=== PATIENT | female | born 1970 | race Caucasian/White ===

== ENCOUNTER → 2018-08-19 | Outpatient (REF) | payer BC ==
[~2018-08-19] MED LIST: ALB18R INH; ANTI INFLAM; AUG875 PO; BACDS PO; BUS5 PO; CIPR-344 PO; CODE118S5 PO; DESV50TA9 PO; DILT120C PO; HYDR25CA83 PO; LAMO25TA60 PO; LIT300CAP PO; LOR5/325 PO; MAGN296S6 PO; METO25TA23 PO; METO25TA93 PO; METR-1 PO; MIRT-1 PO; NO ROUTINE MEDS; OND4 PO; ONDA4TAB PO; OXYC-489 PO; PER PO; PRED20TA6 PO; RANI-366 PO; TRA50 PO; VENL150C61 PO; ZOL5 PO; [UNRECOGNIZED DRUG - CODE] PO; [UNRECOGNIZED DRUG - OTHER]
[2018-08-19 19:18] LABS: PLATELET COUNT, AUTOMATED 194 K/uL (150-450)
== END ==
PROVIDERS: ATTEND Nurse Practitioner Family
DX: R11.10 Vomiting, unspecified (principal)
CPT/HCPCS: 82040; 82150; 82247; 82310; 82374; 82435; 82565; 82947; 83690; 84075; 84132; 84155; 84295; 84450; 84460; 84520; 85025

== ENCOUNTER 2018-11-04 09:38 | Emergency (ER) | payer BC ==
[~2018-11-04 09:38] MED LIST changes: -LAMO25TA60 PO; +LAMO25TA68 PO
--- NOTE | 2018-11-04 09:55 | ER Report ---
History and Physical Time Seen By MD: 09:51 HPI/ROS CHIEF COMPLAINT: cough, abdominal pain HISTORY OF PRESENT ILLNESS: Patient is a 48-year-old female who presents to the emergency department with upper respiratory and flulike symptoms that started earlier in the week over the last 24 hours she is developed bilateral severe lower abdominal pain along with nausea and some diarrhea. She states the diarrhea is nonbloody. Patient states she has a prior history of diverticulitis and states this feels somewhat similar. Patient states that she's had some subjective fevers and chills at home. Denies any chest pain or shortness of breath but does admit to a nonproductive dry cough. She states that multiple coworkers at the [employer] are ill with similar symptoms. REVIEW OF SYSTEMS: Constitutional: Subjective fevers and chills Eyes: No discharge. ENT: No sore throat. Cardiovascular: No chest pain, no palpitations. Respiratory: Nonproductive cough Gastrointestinal: Bilateral lower quadrant abdominal pain with nausea also with nonbloody diarrhea Genitourinary: No hematuria. Musculoskeletal: No back pain. Skin: No rashes. Neurological: No headache. Allergies: Coded Allergies: lamotrigine (Verified Allergy, Mild, Rash, nausea, dizziness, 11/04/18) Home Meds Active Scripts Metronidazole (FLAGYL) 500 Mg Tablet, 500 MG PO BID, #14 TAB 0 Refills Prov:ORA ESTEBAN MD 11/04/18 Ciprofloxacin Hcl 500 Mg Tab (CIPRO 500 MG TAB) 500 Mg Tablet, 500 MG PO BID, #14 TAB 0 Refills Prov:ORA ESTEBAN MD 11/04/18 Ondansetron Hcl (ZOFRAN) 4 Mg Tablet, 4 MG PO Q6H for Nausea, #12 TAB 0 Refills Prov:ORA ESTEBAN MD 11/04/18 Hydrocodone Bit/Acetaminophen (HYDROCODON-ACETAMINOPHEN 5-325) 1 Each Tablet, 1 EACH PO Q4H for PAIN, #12 TAB 0 Refills Prov:ORA ESTEBAN MD 11/04/18 Discontinued Reported Medications [Cough Syrum Codeine] No Conflict Check 09/15/16 Albuterol Sulfate (VENTOLIN HFA) 18 Gm Inh, 1-2 PUFF INH 3-4XD, INH 09/15/16 Discontinued Scripts Codeine/Promethazine Hcl (PROMETHAZINE-CODEINE SYRUP) 5 Ml Syrup, 5 ML PO Q6H PRN for COUGH, #120 ML 0 Refills Prov:ZULEYMA BATISTA MD 09/15/16 Prednisone (PREDNISONE) 20 Mg Tablet, 60 MG PO QDAY, #12 TAB 0 Refills Prov:ZULEYMA BATISTA MD 09/15/16 Past Medical/Surgical History Past medical history for SVT Hx Smoking: No Smoking Status: Never Smoker Exposure to Second Hand Smoke?: No Hx Substance Use Disorder: No Hx Alcohol Use: Yes Constitutional Vital Sign - Last 24 Hours 11/04/18 11/04/18 11/04/18 11/04/18 09:38 09:49 09:53 10:00 Temp 98.8 Pulse 80 78 Resp 18 B/P (MAP) 120/80 (93) 120/80 122/84 (97) Pulse Ox 98 O2 Delivery Room Air 11/04/18 11/04/18 11/04/18 11/04/18 10:08 10:30 10:38 10:56 Pulse 79 80 B/P (MAP) 124/71 (88) Pulse Ox 96 97 O2 Flow Rate 2.0 11/04/18 11/04/18 11/04/18 11/04/18 11:00 11:05 11:30 11:35 Pulse 67 70 B/P (MAP) 123/69 (87) 119/73 (88) Pulse Ox 100 100 11/04/18 11/04/18 11/04/18 11:40 12:00 12:10 Pulse 68 72 B/P (MAP) 118/60 (79) Pulse Ox 99 99 Physical Exam General Appearance: The patient is alert, has no immediate need for airway protection and no signs of toxicity. Eyes: Pupils equal and round; bilateral conjunctival injection without discharge ENT, Mouth: Mucous membranes are moist. No palatal petechia no exudate Respiratory: There are no retractions, lungs are clear to auscultation. Cardiovascular: Regular rate and rhythm. Gastrointestinal: abdomen is tender throughout the bilateral lower quadrants. Worse with cough equivocal peritoneal signs Neurological: Awake and alert Skin: Warm and dry, no rashes. Musculoskeletal: Neck is supple non tender. Extremities are nontender, nonswollen and have full range of motion. Medical Decision Making Data Points Result Diagram: 11/04/1895711/04/18957 Laboratory Hematology Test 11/04/18 09:48 11/04/18 09:58 11/04/18 10:38 Urine Color Yellow Urine Clarity Clear Urine pH 6.0 pH (4.8-9.5) Urine Specific [place] 1.029 Urine Protein Negative mg/dL (NEGATIVE) Urine Glucose (UA) Negative mg/dL (NEGATIVE) Urine Ketones Trace mg/dL (NEGATIVE) Urine Blood Negative (NEGATIVE) Urine Nitrite Negative (NEGATIVE) Urine Bilirubin Negative (NEGATIVE) Urine Urobilinogen Negative mg/dL (0.2-1.9) Urine Leukocyte Esterase Negative (NEGATIVE) Urine RBC 1 /HPF (0-2/HPF) Urine WBC 1 /HPF (0-5/HPF) Urine Squamous Epithelial Cells Moderate /LPF (</=FEW) Urine Bacteria Negative /HPF (NONE-FEW) Urine Mucus Few /HPF (NONE-FEW) Red Blood Count 4.89 M/uL (4.17-5.56) Mean Corpuscular Volume 92.4 fL (80.0-96.0) Mean Corpuscular Hemoglobin 32.1 pg (26.0-33.0) Mean Corpuscular Hemoglobin Concent 34.7 g/dL (32.0-36.0) Red Cell Distribution Width 12.0 % (11.5-14.5) Mean Platelet Volume 8.3 fL (7.2-11.1) Neutrophils (%) (Auto) 78.4 % (39.4-72.5) Lymphocytes (%) (Auto) 14.6 % (17.6-49.6) Monocytes (%) (Auto) 5.5 % (4.1-12.4) Eosinophils (%) (Auto) 0.9 % (0.4-6.7) Basophils (%) (Auto) 0.6 % (0.3-1.4) Nucleated RBC Relative Count (auto) 0.1 /100WBC Neutrophils # (Auto) 7.1 K/uL (2.0-7.4) Lymphocytes # (Auto) 1.3 K/uL (1.3-3.6) Monocytes # (Auto) 0.5 K/uL (0.3-1.0) Eosinophils # (Auto) 0.1 K/uL (0.0-0.5) Basophils # (Auto) 0.1 K/uL (0.0-0.1) Nucleated RBC Absolute Count (auto) 0.01 K/uL Sodium Level 136 mmol/L (137-145) Potassium Level 3.6 mmol/L (3.5-5.0) Chloride Level 104 mmol/L (98-107) Carbon Dioxide Level 24 mmol/L (22-31) Blood Urea Nitrogen 19 mg/dl (7-18) Creatinine 0.60 mg/dl (0.52-1.04) Glomerular Filtration Rate Calc > 60.0 Random Glucose 93 mg/dl (75-110) Calcium Level 9.1 mg/dl (8.4-10.2) Total Bilirubin 1.3 mg/dl (0.2-1.3) Aspartate Amino Transf (AST/SGOT) 34 U/L (0-35) Alanine Aminotransferase (ALT/SGPT) 37 U/L (0-56) Alkaline Phosphatase 108 U/L (0-126) Total Protein 6.8 g/dl (6.3-8.2) Albumin 4.3 g/dl (3.5-5.0) Lipase 61 U/L (23-300) Human Chorionic Gonadotropin, Qual Negative (NEGATIVE) Helicobacter pylori IgG Antibody Negative (NEGATIVE) Influenza Virus Type A (PCR) Negative (NEGATIVE) Influenza Virus Type B (PCR) Negative (NEGATIVE) Chemistry Test 11/04/18 09:48 11/04/18 09:58 11/04/18 10:38 Urine Color Yellow Urine Clarity Clear Urine pH 6.0 pH (4.8-9.5) Urine Specific [place] 1.029 Urine Protein Negative mg/dL (NEGATIVE) Urine Glucose (UA) Negative mg/dL (NEGATIVE) Urine Ketones Trace mg/dL (NEGATIVE) Urine Blood Negative (NEGATIVE) Urine Nitrite Negative (NEGATIVE) Urine Bilirubin Negative (NEGATIVE) Urine Urobilinogen Negative mg/dL (0.2-1.9) Urine Leukocyte Esterase Negative (NEGATIVE) Urine RBC 1 /HPF (0-2/HPF) Urine WBC 1 /HPF (0-5/HPF) Urine Squamous Epithelial Cells Moderate /LPF (</=FEW) Urine Bacteria Negative /HPF (NONE-FEW) Urine Mucus Few /HPF (NONE-FEW) White Blood Count 9.0 k/uL (4.5-11.0) Red Blood Count 4.89 M/uL (4.17-5.56) Hemoglobin 15.7 g/dL (12.0-16.0) Hematocrit 45.1 % (34.0-47.0) Mean Corpuscular Volume 92.4 fL (80.0-96.0) Mean Corpuscular Hemoglobin 32.1 pg (26.0-33.0) Mean Corpuscular Hemoglobin Concent 34.7 g/dL (32.0-36.0) Red Cell Distribution Width 12.0 % (11.5-14.5) Platelet Count 233 K/uL (150-450) Mean Platelet Volume 8.3 fL (7.2-11.1) Neutrophils (%) (Auto) 78.4 % (39.4-72.5) Lymphocytes (%) (Auto) 14.6 % (17.6-49.6) Monocytes (%) (Auto) 5.5 % (4.1-12.4) Eosinophils (%) (Auto) 0.9 % (0.4-6.7) Basophils (%) (Auto) 0.6 % (0.3-1.4) Nucleated RBC Relative Count (auto) 0.1 /100WBC Neutrophils # (Auto) 7.1 K/uL (2.0-7.4) Lymphocytes # (Auto) 1.3 K/uL (1.3-3.6) Monocytes # (Auto) 0.5 K/uL (0.3-1.0) Eosinophils # (Auto) 0.1 K/uL (0.0-0.5) Basophils # (Auto) 0.1 K/uL (0.0-0.1) Nucleated RBC Absolute Count (auto) 0.01 K/uL Glomerular Filtration Rate Calc > 60.0 Calcium Level 9.1 mg/dl (8.4-10.2) Total Bilirubin 1.3 mg/dl (0.2-1.3) Aspartate Amino Transf (AST/SGOT) 34 U/L (0-35) Alanine Aminotransferase (ALT/SGPT) 37 U/L (0-56) Alkaline Phosphatase 108 U/L (0-126) Total Protein 6.8 g/dl (6.3-8.2) Albumin 4.3 g/dl (3.5-5.0) Lipase 61 U/L (23-300) Human Chorionic Gonadotropin, Qual Negative (NEGATIVE) Helicobacter pylori IgG Antibody Negative (NEGATIVE) Influenza Virus Type A (PCR) Negative (NEGATIVE) Influenza Virus Type B (PCR) Negative (NEGATIVE) Urinalysis Test 11/04/18 09:48 Urine Color Yellow Urine Clarity Clear Urine pH 6.0 pH (4.8-9.5) Urine Specific [place] 1.029 Urine Protein Negative mg/dL (NEGATIVE) Urine Glucose (UA) Negative mg/dL (NEGATIVE) Urine Ketones Trace mg/dL (NEGATIVE) Urine Blood Negative (NEGATIVE) Urine Nitrite Negative (NEGATIVE) Urine Bilirubin Negative (NEGATIVE) Urine Urobilinogen Negative mg/dL (0.2-1.9) Urine Leukocyte Esterase Negative (NEGATIVE) Urine RBC 1 /HPF (0-2/HPF) Urine WBC 1 /HPF (0-5/HPF) Urine Squamous Epithelial Cells Moderate /LPF (</=FEW) Urine Bacteria Negative /HPF (NONE-FEW) Urine Mucus Few /HPF (NONE-FEW) EKG/Imaging Imaging FACILITY: PATIENT NAME: Cassi Fang : 1970 MR: [id number] V: [id number] EXAM DATE: ORDERING PHYSICIAN: ORA ESTEBAN TECHNOLOGIST: Location: [facility] Patient: Cassi Fang : 1970 Visit/Account:[id number] Date of Sevice: 11/04/2018 CT ABDOMEN PELVIS W/ CON HISTORY: b/l lower quad ab pain TECHNIQUE: Following administration of IV contrast contiguous axial images acquired through the abdomen/pelvis. Coronal and sagittal reformatting also performed.Dose Lowering Technique One of the following dose optimization techniques was utilized in the performance of this exam: Automated exposure control; adjustment of the mA and/or kV according to the patient's size; or use of an iterative reconstruction technique. Specific details can be referenced in the facility's radiology CT exam operational policy. CONTRAST: mL Isovue-370 COMPARISON: CT abdomen and pelvis September 02, 2014 FINDINGS: Visualized lung bases: Negative. Hepatobiliary: There is a 4 mm cyst in the lateral segment left lobe of the liver that remains unchanged. There is a 1.2 cm mass in segment seven of the liver with peripheral nodular type enhancement on the portal venous phase of contrast imaging. This further enhances on the delayed images similar to the hepatic veins and likely represents a small incidental hemangioma. This is unchanged in size when compared the prior study . The common bile duct appears dilated up to 1.4 cm although appears similar to the prior study Spleen: Negative. Adrenals: Negative. Pancreas: The pancreatic duct is mildly prominent at the pancreatic head measuring four mm in diameter although appears similar to the prior study Kidneys ureters or bladder: There are subcentimeter renal hypodensities that are too small to characterize by CT Genitalia: Negative. GI: There is extensive diverticulosis in the sigmoid colon. There is also diffuse wall thickening in this location with a small amount of adjacent free pelvic fluid. Findings are concerning for acute diverticulitis. A peridiverticular abscess or perforation is not identified. There is a small hiatal hernia. The appendix is visualized and does not appear inflamed Vessels/spaces/nodes: Small amount of free pelvic fluid Bones/soft tissues: Sclerotic density in the left iliac bone appears stable Additional findings: None pertinent. IMPRESSION: There is diffuse wall thickening in the sigmoid colon in location of numerous diverticula. This finding is likely related to acute diverticulitis. There is a small amount of adjacent free pelvic fluid although no evidence of a peridiverticular abscess or perforation Common bile duct appears dilated at 1.4 cm although appears some are to the prior study. Pancreatic duct also mildly dilated which also appears similar to the prior study. Depending upon clinical presentation and MRCP may be helpful for further evaluation 1.2 cm hemangioma right lobe of the liver appears unchanged Small hiatal hernia Report Dictated By: Esther Bundy MD at 11/04/2018 11:47 AM Report E-Signed By: Esther Bundy MD at 11/04/2018 12:07 PM WSN:[email or web address] ED Course/Re-evaluation ED Course 11/04/2018 10:34:00 am patient with flulike symptoms but also with GI symptoms including diarrhea and pain. We'll perform influenza screen I will also perform CT scan of the abdomen and pelvis. 11/04/2018 11:01:50 am patient with improvement of pain with Toradol. Awaiting results of CT scan 11/04/2018 12:14:[address] are consistent with sigmoid diverticulitis there is some dilation of the biliary and pancreatic ducts. Patient is not having any epigastric abdominal pain do not feel MRCP is needed at this time as we have a definitive diagnosis that is consistent with the patient's history physical exam findings. Decision to Disposition Date: Nov 04, 2018 Decision to Disposition Time: 12:14 Depart Departure Latest Vital Signs Vital Signs Date Time Temp Pulse Resp B/P (MAP) Pulse Ox O2 Delivery O2 Flow Rate FiO2 11/04/18 12:10 72 99 11/04/18 12:00 118/60 (79) 11/04/18 10:56 2.0 11/04/18 09:53 98.8 18 Room Air Impression: Primary Impression: Sigmoid diverticulitis Condition: Improved Disposition: HOME OR SELF-CARE Referrals: AXEL NUNN DO (PCP) 2 Days if your symptoms persist New Scripts Metronidazole (FLAGYL) 500 Mg Tablet 500 MG PO BID, #14 TAB 0 Refills Prov: ORA ESTEBAN MD 11/04/18 Ciprofloxacin Hcl 500 Mg Tab (CIPRO 500 MG TAB) 500 Mg Tablet 500 MG PO BID, #14 TAB 0 Refills Prov: ORA ESTEBAN MD 11/04/18 Ondansetron Hcl (ZOFRAN) 4 Mg Tablet 4 MG PO Q6H for Nausea, #12 TAB 0 Refills Prov: ORA ESTEBAN MD 11/04/18 Hydrocodone Bit/Acetaminophen (HYDROCODON-ACETAMINOPHEN 5-325) 1 Each Tablet 1 EACH PO Q4H for PAIN, #12 TAB 0 Refills Prov: ORA ESTEBAN MD 11/04/18 Departure Forms: ER Transition Record, Medications Reconciliation, Off Work/School Form, School or Work Release?: Work Number of days to be released: 4 Patient Portal Information Patient Instructions: Diverticulitis (DC) ORA ESTEBAN MD Nov 04, 2018 09:54
[2018-11-04] MEDS ORDERED: NS(*) 0.9% 1000 ML BAG 1,000 ML IV ONE (10:12)
[2018-11-04] MEDS ORDERED: KETOROLAC 30 MG/ML VIAL IVP ONE (10:15)
[2018-11-04] MEDS ORDERED: ONDANSETRON 4 MG/2 ML VIAL IVP ONE (10:15)
[2018-11-04 10:32] LABS: PLATELET COUNT, AUTOMATED 233 K/uL (150-450)
[2018-11-04] MEDS ORDERED: AZITHROMYCIN(*) 500 MG 500 MG in NS(*) 0.9% 250 ML BAG 250 ML IVPB ONE (10:55)
[2018-11-04] MEDS ORDERED: cefTRIAXone 1 GM VIAL IVP ONE (10:55)
[2018-11-04] MEDS ORDERED: IOPAMIDOL 76% 150 ML INFUS BTL 150 ML ONE (10:59)
[2018-11-04 12:00] VITALS: BP 118/60
--- NOTE | 2018-11-04 12:12 | RADIOLOGY IMAGING REPORT ---
FACILITY: [facility] [place] PATIENT NAME: Cassi Fang : 1970 MR: [id number] V: [id number] EXAM DATE: ORDERING PHYSICIAN: ORA ESTEBAN TECHNOLOGIST: [place] [facility] [place] Patient: Cassi Fang : 1970 Visit/Account:[id number] Date of Sevice: 11/04/2018 CT ABDOMEN PELVIS W/ CON HISTORY: b/l lower quad ab pain TECHNIQUE: Following administration of IV contrast contiguous axial images acquired through the abdom en/pelvis. Coronal and sagittal reformatting also performed.Dose Lowering Technique One of the following dose optimization techniques was utilized in the performance of this exam: Autom ated exposure control; adjustment of the mA and/or kV according to the patient's size; or use of an i terative reconstruction technique. Specific details can be referenced in the facility's radiology C T exam operational policy. CONTRAST: mL Isovue-370 COMPARISON: CT abdomen and pelvis September 02, 2014 FINDINGS: Visualized lung bases: Negative. Hepatobiliary: There is a 4 mm cyst in the lateral segment left lobe of the liver that remains uncha nged. There is a 1.2 cm mass in segment seven of the liver with peripheral nodular type enhancement on the portal venous phase of contrast imaging. This further enhances on the delayed images similar to the hepatic veins and likely represents a small incidental hemangioma. This is unchanged in size when co mpared the prior study . The common bile duct appears dilated up to 1.4 cm although appears similar to the prior study Spleen: Negative. Adrenals: Negative. Pancreas: The pancreatic duct is mildly prominent at the pancreatic head measuring four mm in diamet er although appears similar to the prior study Kidneys ureters or bladder: There are subcentimeter renal hypodensities that are too small to charact erize by CT Genitalia: Negative. GI: There is extensive diverticulosis in the sigmoid colon. There is also diffuse wall thickening i n this location with a small amount of adjacent free pelvic fluid. Findings are concerning for acute diverticulitis. A peridiverticular abscess or perforation is not identified. There is a small hiat al hernia. The appendix is visualized and does not appear inflamed Vessels/spaces/nodes: Small amount of free pelvic fluid Bones/soft tissues: Sclerotic density in the left iliac bone appears stable Additional findings: None pertinent. IMPRESSION: There is diffuse wall thickening in the sigmoid colon in location of numerous diverticula. This find ing is likely related to acute diverticulitis. There is a small amount of adjacent free pelvic fluid although no evidence of a peridiverticular abscess or perforation Common bile duct appears dilated at 1.4 cm although appears some are to the prior study. Pancreatic duct also mildly dilated which also appears similar to the prior study. Depending upon clinical pres entation and MRCP may be helpful for further evaluation 1.2 cm hemangioma right lobe of the liver appears unchanged Small hiatal hernia Report Dictated By: Esther Bundy MD at 11/04/2018 11:47 AM Report E-Signed By: Esther Bundy MD at 11/04/2018 12:07 PM KARINN:[email or web address]
[2018-11-04] MEDS ORDERED: CIPR-344 PO (12:18)
[2018-11-04] MEDS ORDERED: ONDA4TAB97 PO (12:18)
[2018-11-04] MEDS ORDERED: LOR5/325 PO (12:18)
[2018-11-04] MEDS ORDERED: METR-1 PO (12:18)
== END 2018-11-04 12:32 | disposition home or self-care (01) ==
LOC: ER 09:51
DX: K57.32 Diverticulitis of large intestine without perforation or abscess without bleeding (principal)
CPT/HCPCS: 74177; 81001; 83690; 84703; 85025; 86677; 87502; 96361; 96374; 96375; 99284; J1885; J2405; J7030; Q9967; 82040; 82247; 82310; 82374; 82435; 82565; 82947; 84075; 84132; 84155; 84295; 84450; 84460; 84520

== ENCOUNTER 2018-11-13 13:50 | Inpatient (IN) | payer BC ==
[~2018-11-13] VITALS: Ht 162.6 cm; Wt 65.8 kg
[~2018-11-13 13:50] MED LIST changes: +ONDA4TAB97 PO
--- NOTE | 2018-11-13 13:59 | ER Report ---
History and Physical Time Seen By MD: 13:56 Hx. of Stated Complaint: WORSENING ABDO PAIN DESPITE COMPLETION OF ABT TX FOR DIVERTIC HPI/ROS CHIEF COMPLAINT: Abdominal pain HISTORY OF PRESENT ILLNESS: This is a 48-year-old female presents emergency department for recurrent abdominal pain. Patient was here on November 04 diagnosed with diverticulitis, sent home with Flagyl and Cipro, finished the course, follow up with urgent care this last week that she had continued pain. She was off work earlier this week, the pain has intensified since Thursday and , she's also had increased diarrhea with intermittent cramping pain with sharp pain in the right lower quadrant as well as the left lower abdomen. She denies fevers, she does have intermittent nausea no vomiting. No chest pain or shortness of breath. No rashes or headaches. REVIEW OF SYSTEMS: Constitutional: No fever, no chills. Eyes: No discharge. ENT: No sore throat. Cardiovascular: No chest pain, no palpitations. Respiratory: No cough, no shortness of breath. Gastrointestinal: As above. Genitourinary: No hematuria. Musculoskeletal: No back pain. Skin: No rashes. Neurological: No headache. Allergies: Coded Allergies: lamotrigine (Verified Allergy, Mild, Rash, nausea, dizziness, 11/13/18) Home Meds Discontinued Scripts Metronidazole (FLAGYL) 500 Mg Tablet, 500 MG PO BID, #14 TAB 0 Refills Prov:ORA ESTEBAN MD 11/04/18 Ciprofloxacin Hcl 500 Mg Tab (CIPRO 500 MG TAB) 500 Mg Tablet, 500 MG PO BID, #14 TAB 0 Refills Prov:ORA ESTEBNA MD 11/04/18 Ondansetron Hcl (ZOFRAN) 4 Mg Tablet, 4 MG PO Q6H for Nausea, #12 TAB 0 Refills Prov:ORA ESTEBAN MD 11/04/18 Hydrocodone Bit/Acetaminophen (HYDROCODON-ACETAMINOPHEN 5-325) 1 Each Tablet, 1 EACH PO Q4H for PAIN, #12 TAB 0 Refills Prov:ORA ESTEBAN MD 11/04/18 Past Medical/Surgical History Patient has a past medical and surgical history of headaches, SVT, anxiety, back pain, wears glasses and contacts, hypothyroidism, depression, anxiety, suicide attempt, ADD, OCD, bipolar, tubal ligation, right knee surgery. Reviewed Nurses Notes: Yes Hx Smoking: No Smoking Status: Never Smoker Exposure to Second Hand Smoke?: No Hx Substance Use Disorder: No Hx Alcohol Use: Yes Constitutional Vital Sign - Last 24 Hours 11/13/18 11/13/18 11/13/18 11/13/18 13:54 14:00 14:30 15:30 Temp 98.3 Pulse 91 91 92 98 Resp 20 B/P (MAP) 114/64 106/78 (87) 111/80 (90) 116/83 (94) Pulse Ox 98 91 O2 Delivery Room Air Physical Exam General Appearance: The patient is alert, has no immediate need for airway protection and no signs of toxicity. Eyes: Pupils equal and round no pallor or injection. ENT, Mouth: Mucous membranes are moist. Respiratory: There are no retractions, lungs are clear to auscultation. Cardiovascular: Regular rate and rhythm. Gastrointestinal: Abdomen is soft, tender to the right lower quadrant into the. Umbilical area. No rebound tenderness. No Dejesus sign. Neurological: Alert and oriented 4. Moving all extremities. Following all commands. No focal neuro deficits. Skin: Warm and dry, no rashes. Musculoskeletal: Neck is supple non tender. Extremities are nontender, nonswollen and have full range of motion. DIFFERENTIAL DIAGNOSIS: After history and physical exam differential diagnosis was considered for abdominal pain in a female including but not limited to ovarian cyst, diverticulitis, pelvic inflammatory disease, ovarian torsion, urinary tract infection, and appendicitis. Medical Decision Making Data Points Result Diagram: 11/13/18 1416 11/13/18 1416 Laboratory Hematology Test 11/13/18 14:16 11/13/18 14:24 Red Blood Count 4.69 M/uL (4.17-5.56) Mean Corpuscular Volume 92.1 fL (80.0-96.0) Mean Corpuscular Hemoglobin 32.3 pg (26.0-33.0) Mean Corpuscular Hemoglobin Concent 35.1 g/dL (32.0-36.0) Red Cell Distribution Width 12.4 % (11.5-14.5) Mean Platelet Volume 7.9 fL (7.2-11.1) Neutrophils (%) (Auto) 79.6 % (39.4-72.5) Lymphocytes (%) (Auto) 14.6 % (17.6-49.6) Monocytes (%) (Auto) 3.9 % (4.1-12.4) Eosinophils (%) (Auto) 1.3 % (0.4-6.7) Basophils (%) (Auto) 0.6 % (0.3-1.4) Nucleated RBC Relative Count (auto) 0.0 /100WBC Neutrophils # (Auto) 8.8 K/uL (2.0-7.4) Lymphocytes # (Auto) 1.6 K/uL (1.3-3.6) Monocytes # (Auto) 0.4 K/uL (0.3-1.0) Eosinophils # (Auto) 0.1 K/uL (0.0-0.5) Basophils # (Auto) 0.1 K/uL (0.0-0.1) Nucleated RBC Absolute Count (auto) 0.00 K/uL Sodium Level 137 mmol/L (137-145) Potassium Level 3.7 mmol/L (3.5-5.0) Chloride Level 104 mmol/L (98-107) Carbon Dioxide Level 25 mmol/L (22-31) Blood Urea Nitrogen 19 mg/dl (7-18) Creatinine 0.60 mg/dl (0.52-1.04) Glomerular Filtration Rate Calc > 60.0 Random Glucose 85 mg/dl (75-110) Calcium Level 8.8 mg/dl (8.4-10.2) Total Bilirubin 0.8 mg/dl (0.2-1.3) Aspartate Amino Transf (AST/SGOT) 37 U/L (0-35) Alanine Aminotransferase (ALT/SGPT) 34 U/L (0-56) Alkaline Phosphatase 80 U/L (0-126) Total Protein 6.5 g/dl (6.3-8.2) Albumin 4.2 g/dl (3.5-5.0) Lipase 78 U/L (23-300) Urine Color Yellow Urine Clarity Clear Urine pH 5.0 pH (4.8-9.5) Urine Specific [place] 1.024 Urine Protein Negative mg/dL (NEGATIVE) Urine Glucose (UA) Negative mg/dL (NEGATIVE) Urine Ketones Negative mg/dL (NEGATIVE) Urine Blood Negative (NEGATIVE) Urine Nitrite Negative (NEGATIVE) Urine Bilirubin Negative (NEGATIVE) Urine Urobilinogen Negative mg/dL (0.2-1.9) Urine Leukocyte Esterase Negative (NEGATIVE) Urine RBC 1 /HPF (0-2/HPF) Urine WBC 2 /HPF (0-5/HPF) Urine Squamous Epithelial Cells None /LPF (</=FEW) Urine Bacteria Negative /HPF (NONE-FEW) Urine Mucus Few /HPF (NONE-FEW) Chemistry Test 11/13/18 14:16 11/13/18 14:24 White Blood Count 11.0 k/uL (4.5-11.0) Red Blood Count 4.69 M/uL (4.17-5.56) Hemoglobin 15.2 g/dL (12.0-16.0) Hematocrit 43.2 % (34.0-47.0) Mean Corpuscular Volume 92.1 fL (80.0-96.0) Mean Corpuscular Hemoglobin 32.3 pg (26.0-33.0) Mean Corpuscular Hemoglobin Concent 35.1 g/dL (32.0-36.0) Red Cell Distribution Width 12.4 % (11.5-14.5) Platelet Count 281 K/uL (150-450) Mean Platelet Volume 7.9 fL (7.2-11.1) Neutrophils (%) (Auto) 79.6 % (39.4-72.5) Lymphocytes (%) (Auto) 14.6 % (17.6-49.6) Monocytes (%) (Auto) 3.9 % (4.1-12.4) Eosinophils (%) (Auto) 1.3 % (0.4-6.7) Basophils (%) (Auto) 0.6 % (0.3-1.4) Nucleated RBC Relative Count (auto) 0.0 /100WBC Neutrophils # (Auto) 8.8 K/uL (2.0-7.4) Lymphocytes # (Auto) 1.6 K/uL (1.3-3.6) Monocytes # (Auto) 0.4 K/uL (0.3-1.0) Eosinophils # (Auto) 0.1 K/uL (0.0-0.5) Basophils # (Auto) 0.1 K/uL (0.0-0.1) Nucleated RBC Absolute Count (auto) 0.00 K/uL Glomerular Filtration Rate Calc > 60.0 Calcium Level 8.8 mg/dl (8.4-10.2) Total Bilirubin 0.8 mg/dl (0.2-1.3) Aspartate Amino Transf (AST/SGOT) 37 U/L (0-35) Alanine Aminotransferase (ALT/SGPT) 34 U/L (0-56) Alkaline Phosphatase 80 U/L (0-126) Total Protein 6.5 g/dl (6.3-8.2) Albumin 4.2 g/dl (3.5-5.0) Lipase 78 U/L (23-300) Urine Color Yellow Urine Clarity Clear Urine pH 5.0 pH (4.8-9.5) Urine Specific [place] 1.024 Urine Protein Negative mg/dL (NEGATIVE) Urine Glucose (UA) Negative mg/dL (NEGATIVE) Urine Ketones Negative mg/dL (NEGATIVE) Urine Blood Negative (NEGATIVE) Urine Nitrite Negative (NEGATIVE) Urine Bilirubin Negative (NEGATIVE) Urine Urobilinogen Negative mg/dL (0.2-1.9) Urine Leukocyte Esterase Negative (NEGATIVE) Urine RBC 1 /HPF (0-2/HPF) Urine WBC 2 /HPF (0-5/HPF) Urine Squamous Epithelial Cells None /LPF (</=FEW) Urine Bacteria Negative /HPF (NONE-FEW) Urine Mucus Few /HPF (NONE-FEW) Urinalysis Test 11/13/18 14:24 Urine Color Yellow Urine Clarity Clear Urine pH 5.0 pH (4.8-9.5) Urine Specific [place] 1.024 Urine Protein Negative mg/dL (NEGATIVE) Urine Glucose (UA) Negative mg/dL (NEGATIVE) Urine Ketones Negative mg/dL (NEGATIVE) Urine Blood Negative (NEGATIVE) Urine Nitrite Negative (NEGATIVE) Urine Bilirubin Negative (NEGATIVE) Urine Urobilinogen Negative mg/dL (0.2-1.9) Urine Leukocyte Esterase Negative (NEGATIVE) Urine RBC 1 /HPF (0-2/HPF) Urine WBC 2 /HPF (0-5/HPF) Urine Squamous Epithelial Cells None /LPF (</=FEW) Urine Bacteria Negative /HPF (NONE-FEW) Urine Mucus Few /HPF (NONE-FEW) EKG/Imaging Imaging CT ABDOMEN PELVIS W/ CON HISTORY: Abdominal pain TECHNIQUE: CT abdomen and pelvis with intravenous contrast. One of the following dose optimization techniques was utilized in the performance of this exam: Automated exposure control; adjustment of the mA and/or kV according to the patient's size; or use of an iterative reconstruc tion technique. Specific details can be referenced in the facility's radiology CT exam operational policy. CONTRAST: 85 mL Isovue-370. COMPARISON: CT dated November 04, 2018. CT dated September 02, 2014. FINDINGS: Visualized lung bases: Negative. Hepatobiliary: Hypoattenuating lesion within the right hepatic lobe which demonstrated peripheral nodular discontinuous enhancement on the prior CT and is most compatible with a hemangioma. Subcentimeter hypodensity within the lateral left hepatic lobe which is too small to characterize however statistically represents a simple cyst. Prominence of the common bile duct measuring up to 8 mm. There appears to be smooth tapering distally without visualized obstructing mass. Questionable internal soft tissue distally which could be related to choledocholithiasis. Otherwise negative. Spleen: Negative. Adrenals: Negative. Pancreas: Focal prominence of the pancreatic duct measuring up to 6 mm, unchanged. No gross pancreatic mass. Kidneys/: Few subcentimeter hypodensities within the kidneys which are too small to characterize however statistically represents simple cysts. Otherwise negative. GI: Diffuse moderate wall thickening of the descending colon through the rectum, progressed since the prior exam. Mild sigmoid diverticulosis without evidence for diverticulitis. Otherwise negative. Appendix is unremarkable. Vessels/spaces/nodes: Negative. No free fluid or lymphadenopathy. Bones/soft tissues: Dense sclerotic lesion within the left iliac bone which is stable and most compatible with a benign bone island. IMPRESSION: 1. Diffuse moderate wall thickening from the descending colon through the rectum, progressed since prior exam, and most compatible with an infectious/inflammatory colitis. 2. Redemonstration of mildly dilated common bile duct and focally prominent pancreatic duct. There is no significant change since remote exam from 2014. Findings are nonspecific however chronicity suggests benignity. Follow-up nonemergent MRCP should be considered to evaluate choledocholithiasis an underlying mass such as Main branch IPMN. 3. Additional incidental/chronic findings, as above. Report Dictated By: Aubrey Lal MD at 11/13/2018 3:19 PM Report E-Signed By: Aubrey Lal MD at 11/13/2018 3:25 PM [id number] ED Course/Re-evaluation Clinical Indication for ER IV: Hydration, IV Access ED Course The patient was admitted to room. A history of square obtained. Differential diagnoses were considered. An IV was started. A CBC, CMP were obtained. A 1 L normal saline bolus was given. 4 mg IV Zofran, 4 mg IV morphine 3. A CT of the abdomen and pelvis data for diverticulitis showing appears to be an infectious colitis, wall thickening progressively worsening since previous CT, I did review this with patient, she continues to have significant pain even with moving in the gurney. I am concerned that she will be unable to manage this at home if she is just finished a course of Flagyl and Cipro, I discussed the case with Dr. Faria as noted below, the patient will be admitted to the medical floor. She was started on Zosyn, normal saline and made nothing by mouth except for ice chips. Patient expressed understanding was agreeable with the admission. 11/13/2018 4:03:28 pm I did speak with Dr. Faria, the general surgeon on-call discussed the case and the CT findings, we will admit the patient to his services, patient will be started on Zosyn, normal saline and ice chips only. Decision to Disposition Date: Nov 13, 2018 Decision to Disposition Time: 16:03 Depart Departure Latest Vital Signs Vital Signs Date Time Temp Pulse Resp B/P (MAP) Pulse Ox O2 Delivery O2 Flow Rate FiO2 11/13/18 15:30 98 116/83 (94) 91 11/13/18 13:54 98.3 20 Room Air Impression: Primary Impression: Abdominal pain Additional Impression: Infectious colitis Condition: Improved Disposition: Admitted from ER Referrals: AXEL NUNN DO (PCP) New Scripts No Active Prescriptions or Reported Meds Problem Qualifiers Primary Impression: Abdominal pain Abdominal location: generalized Qualified Codes: R10.84 - Generalized abdominal pain CARLOS ALCANTARA BOOM MASTER-BC Nov 13, 2018 13:59
[2018-11-13] MEDS ORDERED: NS(*) 0.9% 1000 ML BAG 1,000 ML IV ONE ×2 (14:12→16:05)
[2018-11-13] MEDS ORDERED: MORPHINE 4 MG/ML SDV IVP ONE ×3 (14:15→16:05)
[2018-11-13] MEDS ORDERED: ONDANSETRON 4 MG/2 ML VIAL IVP ONE (14:15)
[2018-11-13 14:30] LABS: PLATELET COUNT, AUTOMATED 281 K/uL (150-450)
[2018-11-13] MEDS ORDERED: IOPAMIDOL 76% 150 ML INFUS BTL 150 ML ONE (15:03)
--- NOTE | 2018-11-13 15:29 | RADIOLOGY IMAGING REPORT ---
FACILITY: [facility] PATIENT NAME: Cassi Fang : 1970 MR: [id number] V: [id number] EXAM DATE: ORDERING PHYSICIAN: CARLOS ALCANTARA TECHNOLOGIST: Location: [facility] - [place] Patient: Cassi Fang : 1970 Visit/Account:[id number] Date of Sevice: 11/13/2018 CT ABDOMEN PELVIS W/ CON HISTORY: Abdominal pain TECHNIQUE: CT abdomen and pelvis with intravenous contrast. One of the following dose optimization techniques was utilized in the performance of this exam: Autom ated exposure control; adjustment of the mA and/or kV according to the patient's size; or use of an i terative reconstruction technique. Specific details can be referenced in the facility's radiology C T exam operational policy. CONTRAST: 85 mL Isovue-370. COMPARISON: CT dated November 04, 2018. CT dated September 02, 2014. FINDINGS: Visualized lung bases: Negative. Hepatobiliary: Hypoattenuating lesion within the right hepatic lobe which demonstrated peripheral nod ular discontinuous enhancement on the prior CT and is most compatible with a hemangioma. Subcentimete r hypodensity within the lateral left hepatic lobe which is too small to characterize however statist ically represents a simple cyst. Prominence of the common bile duct measuring up to 8 mm. There appea rs to be smooth tapering distally without visualized obstructing mass. Questionable internal soft tis ivy distally which could be related to choledocholithiasis. Otherwise negative. Spleen: Negative. Adrenals: Negative. Pancreas: Focal prominence of the pancreatic duct measuring up to 6 mm, unchanged. No gross pancreat ic mass. Kidneys/: Few subcentimeter hypodensities within the kidneys which are too small to characterize h owever statistically represents simple cysts. Otherwise negative. GI: Diffuse moderate wall thickening of the descending colon through the rectum, progressed since prior exam. Mild sigmoid diverticulosis without evidence for diverticulitis. Otherwise negative. Ap pendix is unremarkable. Vessels/spaces/nodes: Negative. No free fluid or lymphadenopathy. Bones/soft tissues: Dense sclerotic lesion within the left iliac bone which is stable and most sharda tible with a benign bone island. IMPRESSION: 1. Diffuse moderate wall thickening from the descending colon through the rectum, progressed since pr ior exam, and most compatible with an infectious/inflammatory colitis. 2. Redemonstration of mildly dilated common bile duct and focally prominent pancreatic duct. There is no significant change since remote exam from 2015. Findings are nonspecific however chronicity sugge sts benignity. Follow-up nonemergent MRCP should be considered to evaluate choledocholithiasis an und erlying mass such as Main branch IPMN. 3. Additional incidental/chronic findings, as above. Report Dictated By: Aubrey Lal MD at 11/13/2018 3:19 PM Report E-Signed By: Aubrey Lal MD at 11/13/2018 3:25 PM [id number]
[2018-11-13] MEDS ORDERED: PIPERACILLIN/TAZO 4.5 GM VIAL IVPB ONE (16:12)
[2018-11-13] MEDS ORDERED: NS(*) 0.9% 100 ML ADDVANT BAG 100 ML ONE (16:13)
[2018-11-13 16:52] VITALS: BP 115/72
[2018-11-13] MEDS ORDERED: PIPERACILLIN/TAZO* 4.5 GM VIAL 4.5 GM in NS(*) 0.9% 100 ML MINI-BAG 100 ML IVPB SCH (18:00)
[2018-11-13] MEDS: NS(*) 0.9% 1000 ML BAG 1,000 ML IV SCH (18:00)
--- NOTE | 2018-11-13 18:31 | Gen Surgery History & Physical ---
History of Present Illness Chief Complaint abd pain History of Present Illness 48 yo f with abd pain for about 1.5 wks. pain is low abd. +diarrhea. no blood in stool. no vomiting. low grade fever. difficulty urinating. similar symptoms several yrs ago. no colonoscopy in the past. no fam h/o colon ca. pmh/psh: left knee surgery, diverticulitis fam hx: alzheimers, mi, copd social hx: denies cigs and etoh History Home Meds Discontinued Scripts Metronidazole (FLAGYL) 500 Mg Tablet, 500 MG PO BID, #14 TAB 0 Refills Prov:ORA ESTEBAN MD 11/04/18 Ciprofloxacin Hcl 500 Mg Tab (CIPRO 500 MG TAB) 500 Mg Tablet, 500 MG PO BID, #14 TAB 0 Refills Prov:ORA ESTEBAN MD 11/04/18 Ondansetron Hcl (ZOFRAN) 4 Mg Tablet, 4 MG PO Q6H for Nausea, #12 TAB 0 Refills Prov:ORA ESTEBAN MD 11/04/18 Hydrocodone Bit/Acetaminophen (HYDROCODON-ACETAMINOPHEN 5-325) 1 Each Tablet, 1 EACH PO Q4H for PAIN, #12 TAB 0 Refills Prov:ORA ESTEBAN MD 11/04/18 Allergies: Coded Allergies: lamotrigine (Verified Allergy, Mild, Rash, nausea, dizziness, 11/13/18) Patient History: Alcoholism in family Review of Systems Constitutional: Other (10 pt ros neg except per hpi) Exam General Appearance: Alert, Awake, No Acute Distress Neuro: No Gross deficits Eyes: Other (per, eomi) ENT: Moist Mucous Membranes Neck: No Masses Cardiovascular: Other (reg rate) Respiratory: No Respiratory Distress Chest: No Masses GI: Other (soft, nd, lower abd ttp) Extremities: Other (no pitting edema) Integumentary: Skin Intact without Lesion / Mass Psych: Alert & Oriented X3, Appropriate Mood & Affect Medical Decision Making Data Points Result Diagram: 11/13/18 1416 11/13/18 1416 Assessment and Plan Problems: (1) Infectious colitis Status: Acute Assessment & Plan: 11/13/18: ice chips, ivf, pain control, iv abx, serial exams, colonoscopy in 8 wks. Copies to: AXEL NUNN DO ; Venous Thromboembolism Antithrombotics Is Pt On Any Antithrombotics?: No MAYELA GARCIA Nov 13, 2018 18:31
[2018-11-13] MEDS ORDERED: ONDANSETRON 4 MG/2 ML VIAL IVP PRN (18:35)
[2018-11-13 19:23] VITALS: BP 97/64
[2018-11-13] MEDS: HYDROmorphone HCL 2 MG/ML SDV IVP PRN (21:29)
[2018-11-13 22:00] VITALS: BP 113/69
[2018-11-13] MEDS: PIPERACILLIN/TAZO* 4.5 GM VIAL 4.5 GM in NS(*) 0.9% 100 ML MINI-BAG 100 ML IVPB SCH (22:02)
[2018-11-13] MEDS: KETOROLAC 30 MG/ML VIAL IVP PRN (22:06)
[2018-11-14] MEDS: NS(*) 0.9% 1000 ML BAG 1,000 ML IV SCH ×3 (02:02→22:33)
[2018-11-14 03:23] VITALS: BP 104/60
[2018-11-14] MEDS: PIPERACILLIN/TAZO* 4.5 GM VIAL 4.5 GM in NS(*) 0.9% 100 ML MINI-BAG 100 ML IVPB SCH (04:03)
[2018-11-14] MEDS: KETOROLAC 30 MG/ML VIAL IVP PRN ×2 (04:05→10:00)
[2018-11-14 04:20] VITALS: BP 101/57
[2018-11-14 09:14] VITALS: BP 106/66
--- NOTE | 2018-11-14 09:46 | General Surgery Progress Note ---
Subjective Progress Notes Subjective no acute events. abd pain improved. Physical Exam Vital Signs Date Time Temp Pulse Resp B/P (MAP) Pulse Ox O2 Delivery O2 Flow Rate FiO2 11/14/18 09:14 99.7 110 18 106/66 (79) 95 Nasal Cannula 2.0 Intake and Output 11/14/18 07:00 Intake Total 2350 ml Balance 2350 ml Intake Oral 250 ml IV Total 2100 ml # Voids 2 # Bowel Movements 1 General Appearance: No Acute Distress Cardiovascular: Other (mildly tachy) GI: Other (soft) Result Diagram: 11/13/18 1416 11/13/18 1416 Assessment and Plan Problems: (1) Infectious colitis Status: Acute Assessment & Plan: 11/13/18: ice chips, ivf, pain control, iv abx, serial exams, colonoscopy in 8 wks. 11/14/18: pain improving. low grade fever. ambulate. clears. cont abx. Exam Sepsis Risk: No Definite Risk MAYELA GARCIA Nov 14, 2018 09:46
[2018-11-14 09:51] VITALS: Ht 162.6 cm; Wt 65.8 kg
--- NOTE | 2018-11-14 10:00 | Medical Nutrition Therapy ---
Nutrition Anthropometrics Height (Inches): 64.00 Height (Calculated Centimeters: 162.650693 Weight (Pounds): 145 Weight (Calculated Kilograms): 65.771 Tamir Nutrition Score: Probably Inadequate Tamir Nutrition Risk Score: 21 Dietary Referral Nutrition Risk Factors: Nutrition Risk Comment: N/A Physical Findings Physical Appearance: Skin Appearance Skin Appearance: Edema Edema Location Modifier: Edema Location: Type of Edema: Degree of Edema: Gastrointestinal Symptoms GI Symtoms: Appetite Changes, Diarrhea Tube Present: Bowel Sounds: Recent Bowel Pattern: Diarrhea Stool Characteristics: Brown, Loose Nutritional Diagnosis Past Medical History: knee surgery, diverticulitis Nutritional Acuity: 2-Moderate Nutrition Diagnosis: Altered GI Function Nutrition Etiology: Physiological Causes Nutrition Problem/Etiology/Sym: Altered GI function as related to physiological causes as evidenced by infectious colitis dx and reports of diarrhea Energy Requirement: 1672 (m st jeor X 1.1 X 1.2) Protein Requirement: 52 (0.8 g protein/kg) Fluid Requirement: 1625 (25mL/kg) Diet Type: Clear Liquids, NPO/Ice Chips Only Nutrition Intervention: Incr diet as tolerated Nutrition Monitoring & Eval Nutritional Goals Comment: Progress from CL/NPO/Ice chips only to PO as tolerated RD Patient Assessment Time: [address] Assessment Type: RD Assessment Patient Nutrition Acuity: 2-Moderate Follow Up Date: Nov 16, 2018 Nutritional Comment: Pt admitted for abdominal pain, pt reports diarrhea. Dx with infectious colitis. Hx of knee surgery and diverticulitis. BUN of 19 is elevated as is AST of 37. Pt on day 1 CL/NPO/Ice chips only diet. Monitor for progression of diet. -KORTNEY CUEVAS Nov 14, 2018 10:00
[2018-11-14] MEDS: LACTOBACILLUS ACIDOPHILUS TAB PO SCH ×2 (10:21→17:32)
[2018-11-14] MEDS: metroNIDAZOLE* 500MG/100ML BAG 100 ML IVPB SCH ×2 (10:21→18:08)
[2018-11-14] MEDS: LEVOFLOXACIN/D5W*500 MG/100 ML 100 ML IVPB SCH (11:30)
[2018-11-14] MEDS: HYDROmorphone HCL 2 MG/ML SDV IVP PRN ×3 (13:10→20:18)
[2018-11-14 16:54] VITALS: BP 110/70
[2018-11-14 19:50] VITALS: BP 103/72
[2018-11-14] MEDS: APAP/HYDROCODONE 325/7.5 TAB PO PRN (22:38)
[2018-11-14 22:45] VITALS: BP 116/70
[2018-11-15] MEDS: APAP/HYDROCODONE 325/7.5 TAB PO PRN ×3 (02:23→15:10)
[2018-11-15] MEDS: metroNIDAZOLE* 500MG/100ML BAG 100 ML IVPB SCH ×3 (02:23→17:48)
[2018-11-15 02:41] VITALS: BP 107/66
[2018-11-15] MEDS: HYDROmorphone HCL 2 MG/ML SDV IVP PRN ×3 (03:51→15:09)
[2018-11-15] MEDS: NS(*) 0.9% 1000 ML BAG 1,000 ML IV SCH ×2 (06:36→16:44)
[2018-11-15 06:39] VITALS: BP 98/64
[2018-11-15 07:06] LABS: PLATELET COUNT, AUTOMATED 175 K/uL (150-450)
--- NOTE | 2018-11-15 07:39 | General Surgery Progress Note ---
Subjective Progress Notes Subjective pain improving slowly. diarrhea. Physical Exam Vital Signs Date Time Temp Pulse Resp B/P (MAP) Pulse Ox O2 Delivery O2 Flow Rate FiO2 11/15/18 06:39 97.7 72 98/64 (75) 95 11/15/18 02:41 18 Nasal Cannula 1.0 Intake and Output 11/15/18 07:00 Intake Total 1880 ml Balance 1880 ml Intake Oral 780 ml IV Total 1100 ml # Voids 7 # Bowel Movements 7 General Appearance: Alert, Awake Cardiovascular: Other (reg rate) GI: Other (soft, low abd ttp) Result Diagram: 11/15/1830 11/15/18629 Assessment and Plan Problems: (1) Infectious colitis Status: Acute Assessment & Plan: 11/13/18: ice chips, ivf, pain control, iv abx, serial exams, colonoscopy in 8 wks. 11/14/18: pain improving. low grade fever. ambulate. clears. cont abx. 11/15/18: improving slowly. cont abx. ambulate. clears. Exam Sepsis Risk: No Definite Risk MAYELA GARCIA Nov 15, 2018 07:39
[2018-11-15] MEDS: LACTOBACILLUS ACIDOPHILUS TAB PO SCH ×2 (08:01→16:44)
[2018-11-15] MEDS: KETOROLAC 30 MG/ML VIAL IVP PRN (11:00)
[2018-11-15] MEDS: ACETAMINOPHEN 325 MG TAB PO PRN (11:06)
[2018-11-15] MEDS: PROMETHAZINE 25 MG/ML 1 ML AMP IVP PRN (11:52)
[2018-11-15] MEDS: LEVOFLOXACIN/D5W*500 MG/100 ML 100 ML IVPB SCH (11:52)
[2018-11-15 12:01] VITALS: BP 110/72
--- NOTE | 2018-11-15 15:05 | Antimicrobial Stewardship ---
Antimicrobial Time Out Antimicrobial Stewardship Service: Hospitalist, Other (surgery) Indications: Other (Infectious colitis) Antimicrobial Used Started on zosyn 11/13 and switched to Levaquin and Flagyl IV 11/15 Start Date: Nov 13, 2018 Culture Results: N/A Eligible for PO Conversion Eligable for PO Conversion: No Reviewed with Provider Reviewed w/ Provider on Rounds: No Comments Comments Patient DX is infectious colitis and patient is treated with levaquin and flagyl IV. Patient has been afebrile since 11/14 and continues to improve. Continue ABX therapy for 4-7 days. ALLIE SINGH Nov 15, 2018 15:05
[2018-11-15 15:14] VITALS: BP 93/56
[2018-11-15 19:30] VITALS: BP 97/58
[2018-11-16] MEDS: HYDROmorphone HCL 2 MG/ML SDV IVP PRN (00:18)
[2018-11-16] MEDS: NS(*) 0.9% 1000 ML BAG 1,000 ML IV SCH ×2 (02:27→11:47)
[2018-11-16] MEDS: metroNIDAZOLE* 500MG/100ML BAG 100 ML IVPB SCH ×3 (02:27→18:18)
[2018-11-16 04:08] VITALS: BP 115/76
[2018-11-16] MEDS: LACTOBACILLUS ACIDOPHILUS TAB PO SCH ×2 (09:30→17:14)
[2018-11-16 09:32] VITALS: BP 126/80
[2018-11-16 11:05] VITALS: BP 132/78
[2018-11-16] MEDS: LEVOFLOXACIN/D5W*500 MG/100 ML 100 ML IVPB SCH (11:43)
[2018-11-16] MEDS: APAP/HYDROCODONE 325/7.5 TAB PO PRN ×2 (13:27→21:19)
--- NOTE | 2018-11-16 14:23 | General Surgery Progress Note ---
Subjective Progress Notes Subjective pain somewhat improved. would like to try something more than clears. Physical Exam Vital Signs Date Time Temp Pulse Resp B/P (MAP) Pulse Ox O2 Delivery O2 Flow Rate FiO2 11/16/18 11:05 98.4 55 132/78 (96) 93 11/16/18 09:32 20 Nasal Cannula 1.0 Intake and Output 11/16/18 07:00 Intake Total 1890 ml Output Total 2 ml Balance 1888 ml Intake Oral 500 ml IV Total 1390 ml Output Emesis 2 ml # Voids 2 General Appearance: No Acute Distress Cardiovascular: Other (mildly tachycardic) GI: Other (soft) Result Diagram: 11/15/18 0630 11/15/18 0630 Assessment and Plan Problems: (1) Infectious colitis Status: Acute Assessment & Plan: 11/13/18: ice chips, ivf, pain control, iv abx, serial exams, colonoscopy in 8 wks. 11/14/18: pain improving. low grade fever. ambulate. clears. cont abx. 11/15/18: improving slowly. cont abx. ambulate. clears. 11/16/18: advance diet, low fiber. cont abx. ambulate. Exam Sepsis Risk: No Definite Risk MAYELA GARCIA Nov 16, 2018 14:23
--- NOTE | 2018-11-16 14:57 | Medical Nutrition Therapy ---
Nutrition Anthropometrics Height (Inches): 64.00 Height (Calculated Centimeters: 162.973635 Weight (Pounds): 145 Weight (Calculated Kilograms): 65.771 Tamir Nutrition Score: Adequate Tamir Nutrition Risk Score: 21 Dietary Referral Nutrition Risk Factors: Nutrition Risk Comment: N/A Physical Findings Physical Appearance: Skin Appearance Skin Appearance: Edema Edema Location Modifier: Edema Location: Type of Edema: Degree of Edema: Gastrointestinal Symptoms GI Symtoms: Diarrhea Tube Present: Bowel Sounds: Recent Bowel Pattern: Diarrhea Stool Characteristics: Brown, Loose Nutritional Diagnosis Past Medical History: knee surgery, diverticulitis Nutritional Acuity: 2-Moderate Nutrition Diagnosis: Altered GI Function Nutrition Etiology: Physiological Causes Nutrition Problem/Etiology/Sym: Altered GI function as related to physiological causes as evidenced by infectious colitis dx and reports of diarrhea Energy Requirement: 1672 (m st jeor X 1.1 X 1.2) Protein Requirement: 52 (0.8 g protein/kg) Fluid Requirement: 1625 (25mL/kg) Diet Type: Clear Liquids, NPO/Ice Chips Only Nutrition Intervention: Incr diet as tolerated Nutrition Monitoring & Eval Nutrition Goals: Eat 50-100% Meal RD Patient Assessment Time: [address] Assessment Type: RD Assessment Patient Nutrition Acuity: 2-Moderate Follow Up Date: Nov 19, 2018 Nutritional Comment: Pt admitted for abdominal pain, pt reports diarrhea. Dx with infectious colitis. Hx of knee surgery and diverticulitis. BUN of 19 is elevated as is AST of 37. Pt on day 1 CL/NPO/Ice chips only diet. Monitor for progression of diet. -AKG /: Pt still having diarrhea but improving per doctors note. Pt has decreased sodium (134), creatinine (0.50), and calcium (7.7) levels. Pt is on a clear liquid diet with insufficient consumption documented, unable to determine % consumed. Continue to monitor intake. -CURT BECK Nov 16, 2018 10:58
[2018-11-16] MEDS: KETOROLAC 30 MG/ML VIAL IVP PRN (17:14)
[2018-11-16] MEDS: PROMETHAZINE 25 MG/ML 1 ML AMP IVP PRN (18:22)
[2018-11-16] MEDS ORDERED: METR500T15 PO (19:30)
[2018-11-16] MEDS ORDERED: BENZ200C15 PO (19:30)
[2018-11-16] MEDS ORDERED: HYDR-385 PO (19:30)
[2018-11-16] MEDS ORDERED: ONDA-2 PO (19:30)
[2018-11-16] MEDS ORDERED: CIPR-214 PO (19:30)
[2018-11-16] MEDS ORDERED: ESCI20TA8 PO (19:30)
[2018-11-16 19:33] VITALS: BP 102/50
[2018-11-17] MEDS: metroNIDAZOLE* 500MG/100ML BAG 100 ML IVPB SCH ×3 (02:40→18:16)
[2018-11-17] MEDS: NS(*) 0.9% 1000 ML BAG 1,000 ML IV SCH ×2 (02:40→21:57)
[2018-11-17 02:41] VITALS: BP 138/79
[2018-11-17 07:24] VITALS: BP 131/72
[2018-11-17] MEDS: LACTOBACILLUS ACIDOPHILUS TAB PO SCH ×2 (08:29→16:23)
[2018-11-17 11:26] VITALS: BP 125/80
[2018-11-17] MEDS: LEVOFLOXACIN/D5W*500 MG/100 ML 100 ML IVPB SCH (11:47)
[2018-11-17] MEDS: APAP/HYDROCODONE 325/7.5 TAB PO PRN (14:42)
[2018-11-17 15:39] VITALS: BP 139/76
[2018-11-17 18:51] VITALS: BP 111/67
[2018-11-18] MEDS: APAP/HYDROCODONE 325/7.5 TAB PO PRN (02:21)
[2018-11-18] MEDS: metroNIDAZOLE* 500MG/100ML BAG 100 ML IVPB SCH ×3 (02:21→18:06)
[2018-11-18 02:23] VITALS: BP 137/77
[2018-11-18] MEDS: NS(*) 0.9% 1000 ML BAG 1,000 ML IV SCH ×5 (02:35→18:35)
[2018-11-18 06:21] LABS: PLATELET COUNT, AUTOMATED 238 K/uL (150-450)
[2018-11-18 07:14] VITALS: BP 137/83
[2018-11-18] MEDS: LACTOBACILLUS ACIDOPHILUS TAB PO SCH ×2 (08:14→17:20)
[2018-11-18] MEDS: ACETAMINOPHEN 325 MG TAB PO PRN (08:14)
--- NOTE | 2018-11-18 08:43 | General Surgery Progress Note ---
Subjective Progress Notes Subjective pain much improved from arrival but still having pain and had a period of intense pain last night. Physical Exam Vital Signs Date Time Temp Pulse Resp B/P (MAP) Pulse Ox O2 Delivery O2 Flow Rate FiO2 11/18/18 07:14 98.2 50 18 137/83 (101) 92 Room Air 11/16/18 09:32 1.0 Intake and Output 11/18/18 07:00 Intake Total 2060 ml Balance 2060 ml Intake Oral 1060 ml IV Total 1000 ml # Voids 2 General Appearance: No Acute Distress Cardiovascular: Other (mildly [place]) Respiratory: No Respiratory Distress Extremities: Other (soft, lower abd ttp) Result Diagram: 11/18/18 0532 11/18/18 0532 Assessment and Plan Problems: (1) Infectious colitis Status: Acute Assessment & Plan: 11/13/18: ice chips, ivf, pain control, iv abx, serial exams, colonoscopy in 8 wks. 11/14/18: pain improving. low grade fever. ambulate. clears. cont abx. 11/15/18: improving slowly. cont abx. ambulate. clears. 11/16/18: advance diet, low fiber. cont abx. ambulate. 11/17/18: cont abx. diet as april. 11/18/18: pain improved but still having pain. repeat ct. cont abx. Exam Sepsis Risk: No Definite Risk MAYELA GARCIA Nov 18, 2018 08:43
--- NOTE | 2018-11-18 08:48 | General Surgery Progress Note ---
Subjective Progress Notes Subjective delayed note. pt seen on 11/17/18. no acute events. Physical Exam Vital Signs Date Time Temp Pulse Resp B/P (MAP) Pulse Ox O2 Delivery O2 Flow Rate FiO2 11/18/18 07:14 98.2 50 18 137/83 (101) 92 Room Air 11/16/18 09:32 1.0 Intake and Output 11/18/18 07:00 Intake Total 2060 ml Balance 2060 ml Intake Oral 1060 ml IV Total 1000 ml # Voids 2 General Appearance: No Acute Distress Result Diagram: 11/18/18 0532 11/18/18 0532 Assessment and Plan Problems: (1) Infectious colitis Status: Acute Assessment & Plan: 11/13/18: ice chips, ivf, pain control, iv abx, serial exams, colonoscopy in 8 wks. 11/14/18: pain improving. low grade fever. ambulate. clears. cont abx. 11/15/18: improving slowly. cont abx. ambulate. clears. 11/16/18: advance diet, low fiber. cont abx. ambulate. 11/17/18: cont abx. diet as april. Exam Sepsis Risk: No Definite Risk MAYELA GARCIA Nov 18, 2018 08:48
[2018-11-18] MEDS ORDERED: IOPAMIDOL 76% 150 ML INFUS BTL 0 ML ONE (09:50)
[2018-11-18] MEDS ORDERED: LIDOCAINE/SOD BICARB 8.4% SYR ID ONE (10:15)
[2018-11-18] MEDS: LEVOFLOXACIN/D5W*500 MG/100 ML 100 ML IVPB SCH (12:56)
--- NOTE | 2018-11-18 13:48 | RADIOLOGY IMAGING REPORT ---
FACILITY: [facility] - [place] PATIENT NAME: Cassi Fang : 1970 MR: [id number] V: [id number] EXAM DATE: ORDERING PHYSICIAN: MAYELA GARCIA TECHNOLOGIST: Location: [facility] - [place] Patient: Cassi Fang : 1970 Visit/Account:[id number] Date of Sevice: 11/18/2018 CT ABDOMEN PELVIS W/O CON HISTORY: colitis; continued abdominal pain TECHNIQUE: Axial images acquired through the abdomen/pelvis. Coronal and sagittal reformatting also performed. No IV contrast administered.Dose Lowering Technique One of the following dose optimization techniques was utilized in the performance of this exam: Autom ated exposure control; adjustment of the mA and/or kV according to the patient's size; or use of an i terative reconstruction technique. Specific details can be referenced in the facility's radiology C T exam operational policy. COMPARISON: November 13, 2018 FINDINGS: Visualized lung bases: There is been development of small bilateral posterior layering pleural effus ions with compressive atelectasis lower lobes . There is a trace pericardial effusion Hepatobiliary: Proximal 1 cm hypoattenuating lesion in the posterior right hepatic lobe appears rela tively unchanged. Tiny hypoattenuating lesion in the lateral segment left lobe also appears unchange d . The gallbladder appears partially contracted. There is a moderate amount of pericholecystic fluid pr esent. The common bile duct appears prominent measuring up to 11 mm increased from 8 mm previously Spleen: Negative. Adrenals: Negative. Pancreas: Negative. Kidneys ureters and bladder: There is now moderate perinephric stranding surrounding the right kidney . Right kidney appears heterogeneous although not ideally evaluated without contrast. Obstructing c alculus is not seen. There is no evidence of hydronephrosis or hydroureter. Possibility of pyelonep hritis cannot be excluded Genitalia: Negative. GI: There is mild wall thickening of the sigmoid colon although not as well demonstrated on this non contrast study when compared the prior exam. . There is mild diverticulosis of the sigmoid colon al so noted although no surrounding inflammatory change in the pericolonic fat. There is a trace amount of free pelvic fluid Vessels/spaces/nodes: Negative. Bones/soft tissues: Mild degenerative changes L4-5. Sclerotic lesion in the left iliac bone remains stable Additional findings: None pertinent. IMPRESSION: There is now moderate perinephric stranding on the right. The right kidney appears slightly heteroge neous although not ideally evaluated without contrast. An obstructing calculus is not seen. Possibi lity of pyelonephritis cannot be excluded Interval development of small bilateral posterior layering pleural effusions with compressive atelect asis lower lobes. Also noted is a trace pericardial effusion. The gallbladder appears partially contracted. There is a moderate amount of pericholecystic fluid pr esent raising the question of cholecystitis. Common bile duct is also dilated measuring 11 mm increa sed from 8 mm previously. If of concern MRCP may be helpful. There is mild wall thickening of the sigmoid colon although not as well demonstrated when compared to the prior study. This may be related to colitis as previously noted. The descending colon does not appear thickened at this time Sigmoid diverticulosis although no inflammatory change in the pericolonic fat Trace amount of free pelvic fluid Report Dictated By: Esther Bundy MD at 11/18/2018 1:28 PM Report E-Signed By: Esther Bundy MD at 11/18/2018 1:41 PM WSN:[email or web address]
[2018-11-18 15:33] VITALS: BP 115/66
[2018-11-18 22:25] VITALS: BP 128/81
[2018-11-19] MEDS: APAP/HYDROCODONE 325/7.5 TAB PO PRN ×2 (00:18→10:24)
[2018-11-19] MEDS: metroNIDAZOLE* 500MG/100ML BAG 100 ML IVPB SCH ×2 (01:53→10:16)
[2018-11-19] MEDS: NS(*) 0.9% 1000 ML BAG 1,000 ML IV SCH ×3 (01:53→14:29)
[2018-11-19 08:18] VITALS: BP 125/83
[2018-11-19] MEDS: LACTOBACILLUS ACIDOPHILUS TAB PO SCH ×2 (10:16→17:38)
--- NOTE | 2018-11-19 10:43 | RADIOLOGY IMAGING REPORT ---
FACILITY: [facility] PATIENT NAME: Cassi Fang : 1970 MR: [id number] V: [id number] EXAM DATE: ORDERING PHYSICIAN: MAYELA GARCIA TECHNOLOGIST: Location: [facility] - [place] Patient: Cassi Fang : 1970 Visit/Account:[id number] Date of Sevice: 11/19/2018 NM HIDA SCAN HISTORY: possible cholecystitis, dilated common bile duct TECHNIQUE: 6.5 mCi Tc99m Hepatolite was injected intravenously. Multiple sequential gamma camera floridalma ges of the abdomen were obtained for 71 minutes. COMPARISON: CT abdomen and pelvis November 18, 2018 FINDINGS: Liver uptake and excretion: Unremarkable. Time to appearance: Bile ducts: 11 minutes. Gallbladder: 10 minutes. Duodenum: The duodenum was never well visualized although there was passage of isotope into what a ppeared to be small bowel in the left-sided abdomen for common bile duct obstruction is very unlikely Duodenal-gastric reflux / extravasation: None. IMPRESSION: The gallbladder and bile ducts were imaged at 10 minutes and 11 minutes respectively.. The duodenum was never definitely visualized however isotope was noted to be within small bowel loops on the delayed images therefore, bile duct obstruction is very unlikely Report Dictated By: Esther Bundy MD at 11/19/2018 10:35 AM Report E-Signed By: Esther Bundy MD at 11/19/2018 10:39 AM WSN:[email or web address]
--- NOTE | 2018-11-19 10:57 | Medical Nutrition Therapy ---
Nutrition Anthropometrics Height (Inches): 64.00 Height (Calculated Centimeters: 162.046542 Weight (Pounds): 145 Weight (Calculated Kilograms): 65.771 Tamir Nutrition Score: Probably Inadequate Tamir Nutrition Risk Score: 19 Dietary Referral Nutrition Risk Factors: Nutrition Risk Comment: N/A Physical Findings Physical Appearance: Skin Appearance Skin Appearance: Edema Edema Location Modifier: Edema Location: Type of Edema: Degree of Edema: Gastrointestinal Symptoms GI Symtoms: Nausea Tube Present: Bowel Sounds: Recent Bowel Pattern: Diarrhea Stool Characteristics: Brown, Loose Nutritional Diagnosis Past Medical History: knee surgery, diverticulitis Nutritional Acuity: 2-Moderate Nutrition Diagnosis: Altered GI Function Nutrition Etiology: Physiological Causes Nutrition Problem/Etiology/Sym: Altered GI function as related to physiological causes as evidenced by infectious colitis dx and reports of diarrhea Energy Requirement: 1672 (m st jeor X 1.1 X 1.2) Protein Requirement: 52 (0.8 g protein/kg) Fluid Requirement: 1625 (25mL/kg) Diet Type: Medical Liquid/GI soft Nutrition Intervention: Incr diet as tolerated Nutrition Monitoring & Eval Nutrition Goals: Eat 50-100% Meal Nutrition Follow-Up: Fair Intake RD Patient Assessment Time: [address] Assessment Type: RD Assessment Patient Nutrition Acuity: 2-Moderate Follow Up Date: Nov 22, 2018 Nutritional Comment: Pt admitted for abdominal pain, pt reports diarrhea. Dx with infectious colitis. Hx of knee surgery and diverticulitis. BUN of 19 is elevated as is AST of 37. Pt on day 1 CL/NPO/Ice chips only diet. Monitor for progression of diet. -AKG /: Pt still having diarrhea but improving per doctors note. Pt has decreased sodium (134), creatinine (0.50), and calcium (7.7) levels. Pt is on a clear liquid diet with insufficient consumption documented, unable to determine % consumed. Continue to monitor intake. -JJ 11/19: Pt tolerating diet. Pt has decreased potassium (3.3), creatinine (0.50), calcium (7.9), total protein (4.6), albumin (2.7). Pt consuming on average 50%of diet. Continue to montior and encourage intake. -CURT BECK Nov 19, 2018 09:24
[2018-11-19] MEDS: LEVOFLOXACIN/D5W*500 MG/100 ML 100 ML IVPB SCH (11:24)
[2018-11-19 11:28] VITALS: BP 128/83
[2018-11-19] MEDS: PROMETHAZINE 25 MG/ML 1 ML AMP IVP PRN (11:34)
--- NOTE | 2018-11-19 13:26 | General Surgery Progress Note ---
Subjective Progress Notes Subjective was feeling well today then vomited. would still like to try to go home today. Physical Exam Vital Signs Date Time Temp Pulse Resp B/P (MAP) Pulse Ox O2 Delivery O2 Flow Rate FiO2 11/19/18 11:28 97.6 65 16 128/83 (98) 93 Room Air 11/16/18 09:32 1.0 Intake and Output 11/19/18 07:00 Intake Total 2420 ml Balance 2420 ml Intake Oral 220 ml IV Total 2200 ml # Voids 1 General Appearance: No Acute Distress Cardiovascular: Other (reg rate) GI: Other (abd soft) Result Diagram: 11/18/18 0532 11/18/18 0532 Assessment and Plan Problems: (1) Infectious colitis Status: Acute Assessment & Plan: 11/13/18: ice chips, ivf, pain control, iv abx, serial exams, colonoscopy in 8 wks. 11/14/18: pain improving. low grade fever. ambulate. clears. cont abx. 11/15/18: improving slowly. cont abx. ambulate. clears. 11/16/18: advance diet, low fiber. cont abx. ambulate. 11/17/18: cont abx. diet as april. 11/18/18: april po. still some abd pain but improved. ct showed fluid around gb. will get hida. cont abx. 11/19/18: hida unremarkable. feeling better then vomited. cont abx. if doing well this afternoon will d/c home. Exam Sepsis Risk: No Definite Risk MAYELA GARCIA Nov 19, 2018 13:26
[2018-11-19] MEDS ORDERED: AMOX-559 PO (13:57)
[2018-11-19] MEDS ORDERED: HYDR-654 PO (13:57)
[2018-11-19] MEDS ORDERED: ONDA4TAB9 PO (13:59)
--- NOTE | 2018-11-19 17:10 | Hospitalist Depart ---
Discharge Summary Reason for Hosp/Final Diag: (1) Infectious colitis Status: Acute Hospital Course & Plan: 11/13/18: ice chips, ivf, pain control, iv abx, serial exams, colonoscopy in 8 wks. 11/14/18: pain improving. low grade fever. ambulate. clears. cont abx. 11/15/18: improving slowly. cont abx. ambulate. clears. 11/16/18: advance diet, low fiber. cont abx. ambulate. 11/17/18: cont abx. diet as april. 11/18/18: april po. still some abd pain but improved. ct showed fluid around gb. will get hida. cont abx. 11/19/18: hida unremarkable. feeling better then vomited. cont abx. if doing well this afternoon will d/c home. Departure Weight (Pounds): 145 Result Diagram: 11/18/18 0532 11/18/18 0532 Condition: Improved Discharge Instructions Home Meds Active Scripts Ondansetron 4 Mg Odt (ONDANSETRON 4 MG ODT) 4 Mg Tab.rapdis, 4 MG PO ONCE PRN for NAUSEA/VOMITING, #20 TAB Prov:MAYELA KAUR 11/19/18 Amoxicillin/Pot Clav 875-125 Mg Tab (AUGMENTIN 875-125 TABLET) 1 Each Tablet, 1 TAB PO BID, #14 TAB Prov:MAYELA KAUR 11/19/18 Hydrocodone Bit/Acetaminophen (NORCO 7.5-325 TABLET) 1 Each Tablet, 1 EACH PO Q6H PRN for PAIN/HEADACHE, #20 TAB Prov:MAYELA KAUR 11/19/18 Discontinued Reported Medications Escitalopram Oxalate (ESCITALOPRAM OXALATE) 20 Mg Tablet, 1 TAB PO QDAY 11/16/18 Hydrocodone Bit/Acetaminophen (HYDROCODON-ACETAMINOPHEN 5-325) 1 Each Tablet, 1 TAB PO Q4H PRN for PAIN 11/16/18 Ondansetron Hcl (ONDANSETRON HCL) 4 Mg Tablet, 1 TAB PO Q6H PRN for NAUSEA 11/16/18 Metronidazole (METRONIDAZOLE) 500 Mg Tablet, 1 TAB PO BID 11/16/18 Ciprofloxacin 500 Mg Tab (CIPROFLOXACIN 500 MG TAB) 500 Mg Tablet, 1 TAB PO BID 11/16/18 Benzonatate (BENZONATATE) 200 Mg Capsule, 1 CAP PO TID PRN for COUGH 11/16/18 Discontinued Scripts Metronidazole (FLAGYL) 500 Mg Tablet, 500 MG PO BID, #14 TAB 0 Refills Prov:ORA ESTEBAN MD 11/04/18 Ciprofloxacin Hcl 500 Mg Tab (CIPRO 500 MG TAB) 500 Mg Tablet, 500 MG PO BID, #14 TAB 0 Refills Prov:ORA ESTEBAN MD 11/04/18 Ondansetron Hcl (ZOFRAN) 4 Mg Tablet, 4 MG PO Q6H for Nausea, #12 TAB 0 Refills Prov:ORA ESTEBAN MD 11/04/18 Hydrocodone Bit/Acetaminophen (HYDROCODON-ACETAMINOPHEN 5-325) 1 Each Tablet, 1 EACH PO Q4H for PAIN, #12 TAB 0 Refills Prov:ORA ESTEBAN MD 11/04/18 Activity: As Tolerated Special Instructions: low fiber diet. f/u [facility] 2 wks ([phone]). Venous Thromboembolism Antithrombotics Is Pt On Any Antithrombotics?: No MAYELA KAUR Nov 19, 2018 17:10
== END 2018-11-19 18:30 | disposition home or self-care (01) | DRG 392 ==
LOC: ER 14:02 → MED 16:10
PROVIDERS: ADMIT Surgery; ATTEND Surgery
DX: A09 Infectious gastroenteritis and colitis, unspecified (principal); Z88.8 Allergy status to other drugs, medicaments and biological substances
CPT/HCPCS: 36415; 74176; 74177; 78226; 81001; 82040; 82247; 82310; 82374; 82435; 82565; 82947; 83690; 84075; 84132; 84155; 84295; 84450; 84460; 84520; 84703; 85025; 96361; 96374; 96375; 96376; 99285; J1170; J1885; J1956; J2270; J2405; J2543; J2550; J3490; J7030; J7050; Q9967

== ENCOUNTER → 2018-11-15 | Outpatient (CLI) | payer BC, OTHER ==
[2018-11-14 09:51] VITALS: BMI 24.9
[~2018-11-15] MED LIST changes: +BENZ200C15 PO; +CIPR-214 PO; +ESCI20TA8 PO; +HYDR-385 PO; +METR500T15 PO; +ONDA-2 PO
== END ==
LOC: LAB 13:36
PROVIDERS: ATTEND Nurse Practitioner Family
DX: Z77.21 Contact with and (suspected) exposure to potentially hazardous body fluids (principal)
CPT/HCPCS: 86703; 86803; 87340

== ENCOUNTER → 2018-12-21 | Outpatient (CLI) | payer BC ==
[2018-11-14 09:51] VITALS: BMI 24.9
[~2018-12-21] MED LIST changes: +AMOX-559 PO; +GADOBENATE 529MG/1ML 15ML VIAL IVP ONE; +HYDR-654 PO; +LIDOCAINE/SOD BICARB 8.4% SYR ID ONE; +NS(*) 0.9% 50 ML BAG 50 ML ONE; +ONDA4TAB9 PO
--- NOTE | 2018-12-21 12:20 | RADIOLOGY IMAGING REPORT ---
[place] [facility] [place] Cassi Fang : 1970 MR: [id number] V: [id number] EXAM DATE: ORDERING PHYSICIAN: MAYELA GARCIA TECHNOLOGIST: Location: [facility] - [place] Patient: Cassi Fang : 1970 Visit/Account:[id number] Date of Sevice: 12/21/2018 MR ABDOMEN MRCP W & W/O CONTRAST HISTORY: Abdominal Pain TECHNIQUE: Multiplanar multisequence magnetic resonance imaging of the abdomen without and with intr avenous contrast. Magnetic resonance cholangiopancreatography (MRCP) was also performed. CONTRAST: 13 mL MultiHance IV contrast COMPARISON: CT dated November 18, 2018. CT dated September 02, 2014. FINDINGS: Visualized lung bases: Negative. Liver: T2 intermediate increased lesion within the right hepatic lobe measuring up to 10 mm demonstr ating delayed peripheral nodular enhancement, most compatible with a hemangioma. This is nonsignific ant changed dating back to September 02, 2014. Otherwise negative. Gallbladder: Negative. No visualized gallstones, wall thickening, or edema. Bile ducts: Prominence of the common bile duct measuring up to approximately 11 mm, previously 10 mm on exam from 2014. There is no definitive choledocholithiasis although the distal common bile duct i s suboptimally assessed secondary to motion artifact. Postcontrast imaging demonstrates mild heterog eneity within the distal common bile duct which could represent sludge or choledocholithiasis. No si gnificant intrahepatic biliary ductal dilatation. Spleen: Negative. Adrenals: Negative. Pancreas: Negative. No visualized mass. Kidneys/: Subcentimeter cyst within the right kidney. Otherwise negative. Visualized GI: Negative. Vessels/spaces/nodes: Negative. Bones/soft tissues: Negative. IMPRESSION: 1. No acute findings. 2. Nonspecific prominence of the common bile duct which is not significantly changed since 2014. No definitive choledocholithiasis although the distal common bile duct is suboptimally assessed seconda ry to motion artifact. Some of the images demonstrate possible mild heterogeneity within the distal common bile duct which could represent sludge or choledocholithiasis. Consider ERCP if there is clin ical or laboratory concern for cholestasis. Report Dictated By: Aubrey Lal MD at 12/21/2018 12:03 PM Report E-Signed By: Aubrey Lal MD at 12/21/2018 12:16 PM WSN:[email or web address]
== END ==
LOC: MRI 00:37
PROVIDERS: ATTEND Surgery
DX: R93.3 Abnormal findings on diagnostic imaging of other parts of digestive tract (principal)
CPT/HCPCS: 74183; A9577; J7050